=== PATIENT | female | born 2000 | race Caucasian/White ===

== ENCOUNTER 2020-03-19 03:52 | Emergency (ER) | payer BC ==
[~2020-03-19] VITALS: Ht 162 cm; Wt 104.3 kg
--- OUTSIDE RECORDS SUMMARY | 2020-03-19 04:03 | XMS REPORT | Continuity of Care Document ---
Author Organization Unknown Address Unknown Phone Unavailable Allergies There is no data. Medications There is no data. Problems There is no data. Procedures There is no data. Results There is no data. Encounters ACCT No. Visit Date/Time Discharge Status Pt. Type Provider Facility Loc./Unit Complaint [id number] 03/19/2020 03:59:[address] Emergency CELESTE GUZMAN DO Via [facility] ER CRAMPING,DIARRHEA
[2020-03-19] MEDS ORDERED: LACTATED RINGERS 1,000 ML IV ONE (04:17)
--- NOTE | 2020-03-19 04:24 | ED GI ---
General Chief Complaint: OB < 20 WEEKS Stated Complaint: CRAMPING,DIARRHEA Nursing Triage Note: Pt to with c/o abd cramping and diarrhea this morningn. Pt states she is 15 wks and wants to make sure everything is okay. 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 Sepsis Screen: No Definite Risk Source of Information: Patient History of Present Illness Date Seen by Provider: Mar 19, 2020 Time Seen by Provider: 04:09 Initial Comments PT ARRIVES VIA POV FROM [place] STATES SHE BEGAN HAVING DIARRHEA AND DIFFUSE UPPER ABDOMINAL CRAMPING AROUND NOON WAS ALOT BETTER FOR THE REST OF THE DAY, THEN STARTED UP AGAIN AROUND 2230 TONIGHT--NO CRAMPING NOW. HAS HAD WATERY DIARRHEA > 5 < 10. NO BLACK/BLOODY/TARRY STOOLS PT IS 15 WEEKS AND HAS HAD SOME ONGOING NAUSEA, BUT NO VOMITING AND NAUSEA IS NOT ANY WORSE THAN USUAL. LMP 12/06/19. AB 0 NO VAGINAL BLEEDING HAS OB APPOINTMENT WITH DR. SMITH TOMORROW 03/20/20. LAST APPOINTMENT 02/22/20 NO PROBLEMS WITH THIS . NO FEVER NO COUGH OR URI SYMPTOMS NO SORE THROAT NO CHANGES IN TASTE OR SMELL NO CHEST PAIN NO URINARY SYMPTOMS OR DECREASED OUTPUT NO DIZZINESS STATES SHE IS WORRIED SHE MIGHT BE DEHYDRATED, BUT HAS BEEN EATING AND DRINKING AND VOIDING NORMALLY PT LIVES AT HOME WITH . HE IS NOT ILL. BOTH HAVE EATEN THE SAME THINGS THE LAST FEW DAYS NO KNOWN SICK CONTACTS AT WORK. PT WORKS AT [employer] IN [place]. Allergies and Home Medications Allergies Coded Allergies: No Known Drug Allergies (Unverified , 03/19/20) Home Medications L. Acidophilus/Pectin, [place] 1 Each Capsule, 2 EACH PO QID Prescribed by: CELESTE GUZMAN on 03/19/2044 Ondansetron 4 Mg Tab.rapdis, 4 MG PO Q4H Prescribed by: CELESTE GUZMAN on 03/19/20 0544 Patient Home Medication List Home Medication List Reviewed: Yes Review of Systems Review of Systems Constitutional: no symptoms reported; No chills, No diaphoresis, No dizziness, No fever, No malaise, No weakness EENTM: No Symptoms Reported Respiratory: No Symptoms Reported; Denies Cough, Denies Shortness of Air Cardiovascular: No Symptoms Reported; Denies Chest Pain, Denies Edema, Denies Lightheadedness, Denies Palpitations, Denies Syncope Gastrointestinal: See HPI, Abdominal Pain (CRAMPING ALL ACROSS UPPER ABDOMEN--NO PAIN OR CRAMPING BELOW UMBILICUS) Genitourinary: No Symptoms Reported; Denies Burning, Denies Discharge, Denies Frequency, Denies Flank Pain Musculoskeletal: no symptoms reported; No back pain Skin: no symptoms reported Psychiatric/Neurological: No Symptoms Reported; Denies Headache Endocrine: No Symptoms Reported Hematologic/Lymphatic: No Symptoms Reported Past Klmjrig-Shggvd-Bnndsr Hx Past Med/Social Hx: Reviewed and Corrections made Patient Social History Alcohol Use: Rarely Uses Recreational Drug Use: No Smoking Status: Never a Smoker 2nd Hand Smoke Exposure: No Recent Foreign Travel: No Contact w/Someone Who Travel: No Recent Infectious Disease Expo: No Recent Hopitalizations: No Seasonal Allergies Seasonal Allergies: No Past Medical History Surgeries: No Respiratory: No Cardiac: No Neurological: No : Yes Last Menstrual Period: Dec 06, 2019 Hx : 1 Hx Para: 0 Hx Total # of Abortions (Sp): 0 Reproductive Disorders: No Genitourinary: No Gastrointestinal: No Musculoskeletal: No Endocrine: No HEENT: No Cancer: No Psychosocial: No Integumentary: No Blood Disorders: No Physical Exam Vital Signs Vital Signs - First Documented 03/19/20 04:12 Temp 36.8 Pulse 96 Resp 17 B/P (MAP) 125/75 (92) Pulse Ox 99 O2 Delivery Room Air Capillary Refill : Less Than 3 Seconds Height/Weight/BMI Height: '" Weight: lbs. oz. kg; 39.00 BMI Method: General Appearance: WD/WN, no apparent distress, other (DOES NOT APPEAR ILL OR TO BE IN ANY DISCOMFORT OR DISTRESS. WALKS UPRIGHT AND MOVES WITHOUT DIFFICULTY. ) HEENT: PERRL/EOMI, normal ENT inspection, TMs normal, pharynx normal Neck: non-tender, full range of motion, supple, normal inspection Respiratory: normal breath sounds, no respiratory distress, no accessory muscle use Cardiovascular: normal peripheral pulses, regular rate, rhythm, no edema, no JVD, no murmur Gastrointestinal: normal bowel sounds, non tender, soft, other (UTERUS 3 FB'S BELOW UMBILICUS) Extremities: normal inspection, no pedal edema, no calf tenderness, normal capillary refill Back: normal inspection, no CVA tenderness Neurologic/Psychiatric: external grinder tender II-XII nml as tested, no motor/sensory deficits, alert, normal mood/affect, oriented x 3 Skin: normal color, warm/dry Progress/Results/Core Measures Results/Orders Lab Results Laboratory Tests Test 03/19/20 04:47 03/19/20 04:57 Range/Units Urine Color YELLOW Urine Clarity SL CLOUDY Urine pH 6.0 5-9 Urine Specific [place] 1.010 L 1.016-1.022 Urine Protein NEGATIVE NEGATIVE Urine Glucose (UA) NEGATIVE NEGATIVE Urine Ketones NEGATIVE NEGATIVE Urine Nitrite NEGATIVE NEGATIVE Urine Bilirubin NEGATIVE NEGATIVE Urine Urobilinogen 0.2 < = 1.0 MG/DL Urine Leukocyte Esterase NEGATIVE NEGATIVE Urine RBC (Auto) NEGATIVE NEGATIVE Urine RBC NONE /HPF Urine WBC 0-2 /HPF Urine Squamous Epithelial Cells 0-2 /HPF Urine Crystals NONE /LPF Urine Bacteria TRACE /HPF Urine Casts NONE /LPF Urine Mucus NEGATIVE /LPF Urine Culture Indicated NO White Blood Count 13.1 H 4.3-11.0 10^3/uL Red Blood Count 4.35 4.35-5.85 10^6/uL Hemoglobin 13.0 11.5-16.0 G/DL Hematocrit 37 35-52 % Mean Corpuscular Volume 86 80-99 FL Mean Corpuscular Hemoglobin 30 25-34 PG Mean Corpuscular Hemoglobin Concent 35 32-36 G/DL Red Cell Distribution Width 14.1 10.0-14.5 % Platelet Count 230 130-400 10^3/uL Mean Platelet Volume 10.4 7.4-10.4 FL Neutrophils (%) (Auto) 89 H 42-75 % Lymphocytes (%) (Auto) 5 L 12-44 % Monocytes (%) (Auto) 5 0-12 % Eosinophils (%) (Auto) 0 0-10 % Basophils (%) (Auto) 0 0-10 % Neutrophils # (Auto) 11.7 H 1.8-7.8 X 10^3 Lymphocytes # (Auto) 0.7 L 1.0-4.0 X 10^3 Monocytes # (Auto) 0.7 0.0-1.0 X 10^3 Eosinophils # (Auto) 0.0 0.0-0.3 10^3/uL Basophils # (Auto) 0.0 0.0-0.1 10^3/uL Neutrophils % (Manual) 87 % Lymphocytes % (Manual) 6 % Monocytes % (Manual) 4 % Eosinophils % (Manual) 2 % Myelocytes % 1 % Poikilocytosis SLIGHT Basophilic Stippling SLIGHT Anisocytosis SLIGHT Sodium Level 136 135-145 MMOL/L Potassium Level 3.5 L 3.6-5.0 MMOL/L Chloride Level 109 H 98-107 MMOL/L Carbon Dioxide Level 16 L 21-32 MMOL/L Anion Gap 11 5-14 MMOL/L Blood Urea Nitrogen 8 7-18 MG/DL Creatinine 0.72 0.60-1.30 MG/DL Estimat Glomerular Filtration Rate > 60 BUN/Creatinine Ratio 11 Glucose Level 108 H 70-105 MG/DL Calcium Level 8.9 8.5-10.1 MG/DL Corrected Calcium 8.8 8.5-10.1 MG/DL Magnesium Level 1.6 1.6-2.4 MG/DL Total Bilirubin 0.3 0.1-1.0 MG/DL Aspartate Amino Transf (AST/SGOT) 15 5-34 U/L Alanine Aminotransferase (ALT/SGPT) 18 0-55 U/L Alkaline Phosphatase 63 40-136 U/L Total Protein 7.0 6.4-8.2 GM/DL Albumin 4.1 3.2-4.5 GM/DL Amylase Level 67 25-125 U/L Lipase 23 8-78 U/L My Orders Orders - CELESTE GUZMAN DO Ed Iv/Invasive Line Start (03/19/20 04:17) Heart Tones (03/19/20 04:17) Monitor-Rhythm Ecg Trace Only (03/19/20 04:17) Amylase (03/19/20 04:17) Cbc With Automated Diff (03/19/20 04:17) Comprehensive Metabolic Panel (03/19/20 04:17) Lipase (03/19/20 04:17) Magnesium (03/19/20 04:17) Ua Culture If Indicated (03/19/20 04:17) Ed Iv/Invasive Line Start (03/19/20 04:17) Lactated Ringers (Lr 1000 Ml Iv Solution (03/19/20 04:17) Manual Differential (03/19/20 04:57) Ondansetron Oral Dissolve Tab (Zofran (03/19/20 05:21) Vital Signs/I&O 03/19/20 04:12 Temp 36.8 Pulse 96 Resp 17 B/P (MAP) 125/75 (92) Pulse Ox 99 O2 Delivery Room Air Blood Pressure Mean: 92 Progress Progress Note : Progress Note FHT'S 150'S UNABLE TO OBTAIN IV ACCESS, BUT ABLE TO DRAW LAB PT GIVEN ZOFRAN FOR NAUSEA, WITH IMPROVEMENT--PT DRINKING WATER WITHOUT DIFFICULTY HAD ONE EPISODE OF DIARRHEA DURING ER STAY, BUT WAS NOT ABLE TO COLLECT SPECIMEN TO SEND TO LAB Departure Impression Primary Impression: 15 weeks gestation of Additional Impression: Gastroenteritis Disposition: 01 HOME, SELF-CARE Condition: Improved Departure-Patient Inst. Referrals: YAMILET ANDREW MD (PCP) Primary Care Physician TODD SMITH DO (Family) Primary Care Physician Patient Instructions: [id number] Add. Discharge Instructions: CLEAR LIQUIDS--WATER, BROTH, JELLO, GATORADE BRATS DIET--BANANAS, RICE, APPLESAUCE, TOAST, SALTINES KEEP YOUR APPOINTMENT WITH DR. SMITH TOMORROW RETURN TO ER IF SYMPTOMS WORSEN All discharge instructions reviewed with patient and/or family. Voiced understanding. Scripts L. Acidophilus/Pectin, [place] (Acidophilus Capsule) 1 Each Capsule 2 EACH PO QID, #40 CAP Prov: CELESTE GUZMAN DO 03/19/20 Ondansetron (Ondansetron Odt) 4 Mg Tab.rapdis 4 MG PO Q4H for Nausea/Vomiting, #10 TAB Prov: CELESTE GUZMAN DO 03/19/20 CELESTE GUZMAN DO Mar 19, 2020 04:24
[2020-03-19 04:57] LABS: BILIRUBIN,URINE NEGATIVE (NEGATIVE); CLARITY,URINE SL CLOUDY; COLOR,URINE YELLOW; GLUCOSE, URINE (UA) NEGATIVE (NEGATIVE); KETONES,URINE NEGATIVE (NEGATIVE); LEUKOCYTE ESTERASE ,URINE NEGATIVE (NEGATIVE); NITRITE,URINE NEGATIVE (NEGATIVE); PROTEIN,URINE NEGATIVE (NEGATIVE)
[2020-03-19 05:06] LABS: BACTERIA,URINE TRACE /HPF; SQUAMOUS EPITHELIAL CELL,UR 0-2 /HPF; WBC,URINE 0-2 /HPF
[2020-03-19 05:09] LABS: BASOPHILS % (AUTO) 0 % (0-10); EOSINOPHILS % (AUTO) 0 % (0-10); HEMATOCRIT 37 % (35-52); LYMPHOCYTES # (AUTO) 0.7 X 10^3 (1.0-4.0); LYMPHOCYTES % (AUTO) 5 % (12-44); MEAN CORPUSCULAR HEMOGLOBIN 30 PG (25-34); MEAN CORPUSCULAR HGB CONC 35 G/DL (32-36); MEAN CORPUSCULAR VOLUME 86 FL (80-99); MEAN PLATELET VOLUME 10.4 FL (7.4-10.4); MONOCYTES # (AUTO) 0.7 X 10^3 (0.0-1.0); MONOCYTES % (AUTO) 5 % (0-12); NEUTROPHILS # (AUTO) 11.7 X 10^3 (1.8-7.8); NEUTROPHILS % (AUTO) 89 % (42-75); PLATELET COUNT 230 10^3/uL (130-400); RED CELL DISTRIBUTION WIDTH 14.1 % (10.0-14.5); WHITE BLOOD COUNT 13.1 10^3/uL (4.3-11.0)
[2020-03-19] MEDS ORDERED: ONDANSETRON 4 MG (ZOFRAN) ORAL DISSOLVE TAB PO STA (05:21)
[2020-03-19 05:34] LABS: ALANINE AMINOTRANSFERASE 18 U/L (0-55); ALBUMIN 4.1 GM/DL (3.2-4.5); ALKALINE PHOSPHATASE 63 U/L (40-136); AMYLASE 67 U/L (25-125); BILIRUBIN,TOTAL 0.3 MG/DL (0.1-1.0); BUN/CREATININE RATIO 11; CALCIUM 8.9 MG/DL (8.5-10.1); CARBON DIOXIDE 16 MMOL/L (21-32); CHLORIDE 109 MMOL/L (98-107); CREATININE SERUM 0.72 MG/DL (0.60-1.30); GFR ESTIMATED > 60; GLUCOSE 108 MG/DL (70-105); LIPASE 23 U/L (8-78); MAGNESIUM 1.6 MG/DL (1.6-2.4); POTASSIUM 3.5 MMOL/L (3.6-5.0); SODIUM 136 MMOL/L (135-145)
[2020-03-19 05:36] LABS: ANISOCYTOSIS SLIGHT; EOSINOPHILS % (MANUAL) 2 %; LYMPHOCYTES % (MANUAL) 6 %; MONOCYTES % (MANUAL) 4 %; MYELOCYTES % 1 %; NEUTROPHILS % (MANUAL) 87 %; POIKILOCYTOSIS SLIGHT
[2020-03-19] MEDS ORDERED: ONDA4TAB11 PO (05:44)
[2020-03-19] MEDS ORDERED: L. A1CAP11 PO (05:44)
[2020-03-19 05:51] VITALS: BP 122/81
== END 2020-03-19 05:51 | disposition home or self-care (01) ==
LOC: EDUNIT# 03:52 → ER 03:59 → EDSEX 03:59 → ER 05:51
DX: O99.612 Diseases of the digestive system complicating pregnancy, second trimester (principal); K52.9 Noninfective gastroenteritis and colitis, unspecified; Z3A.15 15 weeks gestation of pregnancy
CPT/HCPCS: 36415; 80053; 81000; 82150; 83690; 83735; 85007; 85027; 93041

== ENCOUNTER → 2020-04-23 | Outpatient (CLI) | payer BC ==
[~2020-04-23] MED LIST: L. A1CAP11 PO; ONDA4TAB11 PO
--- NOTE | 2020-04-23 13:02 | Diagnostic Imaging Report ---
INDICATION: survey. TECHNIQUE: Multiple real-time grayscale images were obtained over the gravid uterus. COMPARISON: None. FINDINGS: There is a single live fetus in a cephalic presentation. heart rate was recorded at 153 BPM. Placenta is posterior. Amniotic fluid index is 14.1 cm. survey demonstrates kidneys, bladder, and stomach to be unremarkable. brain is unremarkable. There is a four-chamber heart. There is a three-vessel cord with normal insertion. spine is unremarkable. Biometrical measurements are as follows: Biparietal 4.91 cm, age 20 weeks 6 days. Head circumference 17.78 cm, age 20 weeks 2 days. Abdominal circumference 14.42 cm, age 19 weeks 6 days. Femur length 3.15 cm, age 19 weeks 6 days. Sonographic estimate age: 20 weeks 2 days. Sonographic estimated date of delivery: 09/08/2020. Estimated Weight: 317 gm (+/- 46 gm). LMP percentile: 45%. heart rate: 153 beats per minute. number: 1 of 1. IMPRESSION: Single live IUP of 20 weeks 2 days gestational age. Estimated date of confinement sonographically is 09/08/2020. No complicating features are detected. Dictated by: Dictated on workstation # [id number]
== END ==
LOC: RAD 10:00
PROVIDERS: ATTEND Obstetrics & Gynecology
DX: Z36.89 Encounter for other specified antenatal screening (principal); Z3A.20 20 weeks gestation of pregnancy
CPT/HCPCS: 76805

== ENCOUNTER 2020-09-10 15:53 | Outpatient (CLI) | payer BC, MEDICAID ==
[~2020-09-10] VITALS: Ht 160 cm; Wt 125.1 kg
[2020-09-10 16:00] VITALS: BP 137/71
--- NOTE | 2020-09-10 16:00 | NUR ---
RASHI ALEGRE presented to unit from Home, accompanied by Significant Other, with c/o FELL AT WORK. RASHI ALEGRE weighed, gowned, voided, and to bed. EFHM and TOCO applied, VS taken. RASHI ALEGRE oriented to bed controls, call light, TV, heat, and A/C controls.
[2020-09-10 16:10] VITALS: BP 137/71
--- NOTE | 2020-09-10 16:55 | NUR ---
Dr. Giles notified of patient's arrival, complaints, and status. New orders received.
[2020-09-10] MEDS ORDERED: PNV11TAB5 PO (18:09)
[2020-09-10 18:15] VITALS: BP 126/76
--- NOTE | 2020-09-10 19:42 | NUR ---
pt resting in bed, denies any pain. s/o at bedside. called to unit. Update given. No new orders at this time. Will continue to monitor.
--- NOTE | 2020-09-10 20:25 | NUR ---
Discharge instructions verbalized with pt. labor precautions given. Pt will follow up in the clinic tomorrow. Pt verbalized understanding. Pt dc'd home with s/o at side.
--- NOTE | 2020-09-11 08:09 | Physician Query-Final Dx ---
Clinic Account Progress/Dx Physician Query: Please give diagnosis Please include # weeks gestation Date of Service Sep 10, 2020 at 15:53 ULISES MONTEZ Sep 11, 2020 08:09
[2020-09-13] MEDS ORDERED: ACHD5005 PO (07:58)
[2020-09-13] MEDS ORDERED: DCS100C PO (07:58)
[2020-09-13] MEDS ORDERED: IBUP-844 PO (07:58)
== END 2020-09-10 20:25 ==
LOC: WSo 15:53 → LDRP 16:05 → WSo 20:25
PROVIDERS: ATTEND Obstetrics & Gynecology
DX: O9A.213 Injury, poisoning and certain other consequences of external causes complicating pregnancy, third trimester (principal); Z3A.39 39 weeks gestation of pregnancy
CPT/HCPCS: 99213

== ENCOUNTER 2020-09-12 02:59 | Inpatient (IN) | payer BC, MEDICAID ==
[2020-09-12] VITALS (74 sets, daily range): BP systolic 77–186; BP diastolic 36–99
[~2020-09-12] VITALS: Ht 160.2 cm; Wt 123.4 kg
[~2020-09-12 02:59] MED LIST changes: +PNV11TAB5 PO
--- NOTE | 2020-09-12 03:00 | NUR ---
RASHI ALEGRE presented to unit via W/C from home/ED, accompanied by avionics electronics technician & SO, with c/o CONTRACTIONS. RASHI ALEGRE weighed, gowned, voided, and to bed. EFHM and TOCO applied, VS taken. RASHI ALEGRE oriented to bed controls, call light, TV, heat, and A/C controls.
[2020-09-12] MEDS ORDERED: D5 LR IV SOLUTION 1,000 ML IV ONE (04:06)
[2020-09-12] MEDS ORDERED: LACTATED RINGERS 1,000 ML IV ONE ×2 (04:30→06:00)
[2020-09-12] MEDS ORDERED: fentaNYL 2 mcg/ml BUPIVA 0.125 100 ML ONE (04:32)
[2020-09-12] MEDS: D5 LR IV SOLUTION 1,000 ML IV SCH ×2 (04:38→12:16)
[2020-09-12 04:44] LABS: BASOPHILS # (AUTO) 0.1 10^3/uL (0.0-0.1); BASOPHILS % (AUTO) 0 % (0-10); EOSINOPHILS % (AUTO) 0 % (0-10); HEMATOCRIT 36 % (35-52); HEMOGLOBIN 11.9 g/dL (11.5-16.0); LYMPHOCYTES # (AUTO) 1.9 10^3/uL (1.0-4.0); LYMPHOCYTES % (AUTO) 12 % (12-44); MEAN CORPUSCULAR HEMOGLOBIN 28 pg (25-34); MEAN CORPUSCULAR HGB CONC 33 g/dL (32-36); MEAN CORPUSCULAR VOLUME 85 fL (80-99); MEAN PLATELET VOLUME 10.5 fL (9.0-12.2); MONOCYTES # (AUTO) 0.7 10^3/uL (0.0-1.0); MONOCYTES % (AUTO) 5 % (0-12); NEUTROPHILS # (AUTO) 12.8 10^3/uL (1.8-7.8); NEUTROPHILS % (AUTO) 80 % (42-75); PLATELET COUNT 267 10^3/uL (130-400); WHITE BLOOD COUNT 15.9 10^3/uL (4.3-11.0)
[2020-09-12] MEDS ORDERED: fentaNYL INJECTION 100 MCG/2 ML AMP ONE ×2 (05:20→16:14)
[2020-09-12] MEDS ORDERED: BUPIVACAINE 0.25% 30 ML (SENSORCAINE) VIAL ONE ×2 (05:20→17:37)
[2020-09-12] MEDS ORDERED: NALOXONE 0.4 MG/ML 1 ML (NARCAN) VIAL IV PRN (06:00)
[2020-09-12] MEDS ORDERED: CATHETER FLUSH 10 ML SYR IV PRN (06:00)
[2020-09-12] MEDS ORDERED: CATHETER FLUSH 10 ML SYR IV SCH ×2 (06:00→22:00)
[2020-09-12] MEDS: fentaNYL 2 mcg/ml BUPIVA 0.125 100 ML IV SCH ×2 (06:13→14:25)
--- NOTE | 2020-09-12 07:22 | History & Physical-OB ---
OB - Chief Complaint & HPI Date/Time Date of Admission: Date of Admission: Sep 12, 2020 at 04:06 Date seen by a Provider: Sep 12, 2020 Time Seen by a Provider: 07:10 Chief Complaint/History OB-Reason for Admission/Chief: Onset of Labor Hx : 1 Hx Para: 0 Expected Date of Delivery: Sep 11, 2020 Gestational Age in Weeks: 40 Gestational Age in Days: 1 Admission Nurse Assessment Rev: Yes History of Labs O pos Antibody neg RI RPR NR HBsAg NR HIV NR GC neg GBS neg Allergies and Home Medications Allergies Coded Allergies: No Known Drug Allergies (Unverified , 03/19/20) Home Medications [id number]/FA/Omega3/Dha/Fish Oil 1 Each Tab.chew, 1 EACH PO DAILY, (Reported) Patient Home Medication List Home Medication List Reviewed: Yes OB - History Hx of Present Care: Yes Ultrasounds: Normal mid trimester US Obstetrical Complications: None Medical Complications: None Patient Past Medical History n/a Social History/Family History 2nd Hand Smoke Exposure: No Immunizations Date of Influenza Vaccine: Jun 12, 2020 OB - Admission Exam Physical Exam Vitals: Vital Signs 09/12/20 09/12/20 06:30 06:40 Temp 36.4 Pulse 81 Resp 18 B/P (MAP) 116/59 (78) Pulse Ox 94 O2 Delivery Room Air HEENT: NCAT Heart: Rhythm Normal Lungs: Clear Abdomen: Gravid Extremities: Normal Reflexes: Normal Cervical Dilatation: 3cm Effacement: 75% Station: -1 Membranes: Intact Heart Rate: 130's Accelerations: Accelerations Present Decelerations: No Decelerations Short Term Variability: Present Hotel Or Motel Receptionist Variability: Average (6-25) Contractions on Admission: < 5 Minutes Apart Intensity: Firm Labs Laboratory Tests Test 09/12/20 04:15 Range/Units White Blood Count 15.9 H 4.3-11.0 10^3/uL Red Blood Count 4.20 3.80-5.11 10^6/uL Hemoglobin 11.9 11.5-16.0 g/dL Hematocrit 36 35-52 % Mean Corpuscular Volume 85 80-99 fL Mean Corpuscular Hemoglobin 28 25-34 pg Mean Corpuscular Hemoglobin Concent 33 32-36 g/dL Red Cell Distribution Width 14.1 10.0-14.5 % Platelet Count 267 130-400 10^3/uL Mean Platelet Volume 10.5 9.0-12.2 fL Immature Granulocyte % (Auto) 3 % Neutrophils (%) (Auto) 80 H 42-75 % Lymphocytes (%) (Auto) 12 12-44 % Monocytes (%) (Auto) 5 0-12 % Eosinophils (%) (Auto) 0 0-10 % Basophils (%) (Auto) 0 0-10 % Neutrophils # (Auto) 12.8 H 1.8-7.8 10^3/uL Lymphocytes # (Auto) 1.9 1.0-4.0 10^3/uL Monocytes # (Auto) 0.7 0.0-1.0 10^3/uL Eosinophils # (Auto) 0.0 0.0-0.3 10^3/uL Basophils # (Auto) 0.1 0.0-0.1 10^3/uL Immature Granulocyte # (Auto) 0.4 H 0.0-0.1 10^3/uL OB - Assessment/Plan/Diagnosis Assessment Assessment: active labor Admission Dx 20 yo @ 40.1 Active labor Post dates GBS neg Admission Status: Inpatient Order (span 2 midnights) Reason for Inpatient Admission: Active labor at term Plan Plan: Expectant Management TODD SMITH DO Sep 12, 2020 07:22
[2020-09-12] MEDS ORDERED: OXYTOCIN PRE-MIX DRIP 500 ML IV SCH ×2 (07:30→16:45)
[2020-09-12] MEDS ORDERED: LIDOCAINE/EPI 2% 1:200,00 (XYLOCAINE) 10 ML VIAL ONE ×2 (15:30→15:31)
[2020-09-12] MEDS ORDERED: CITRIC ACID/SOB CIT (BICITRA) 30 ML UDC ONE (16:00)
[2020-09-12] MEDS ORDERED: METOCLOPRAMIDE INJ 10 MG/2 ML (REGLAN) ONE (16:00)
[2020-09-12] MEDS ORDERED: ceFAZolin 2 GM IV Premixed 50 ML ONE (16:00)
[2020-09-12] MEDS ORDERED: FAMOTIDINE 20MG/2ML IV (PEPCID) ONE (16:00)
[2020-09-12] MEDS ORDERED: CITRIC ACID/SOB CIT (BICITRA) 30 ML UDC PO ONE (16:15)
[2020-09-12] MEDS ORDERED: LACTATED RINGERS 1,000 ML IV PRN (16:15)
[2020-09-12] MEDS ORDERED: FAMOTIDINE 20MG/2ML IV (PEPCID) IV ONE (16:15)
[2020-09-12] MEDS ORDERED: METOCLOPRAMIDE INJ 10 MG/2 ML (REGLAN) IV ONE (16:15)
--- NOTE | 2020-09-12 16:44 | Progress Note ---
Standard Progress Note Progress Notes/Assess & Plan Date Seen by a Provider: Sep 12, 2020 Time Seen by a Provider: 16:00 Progress/Assessment & Plan Patient admitted in active labor, she progressed with AROM and Pitocin augmentation to complete and 0 station after receiving an epidural. She pushed with prolonged bradycardia noted, O2 supplementation via non-rebreather mask with no resolution. Suspected OP presentation on SVE. Large caput noted. Due to CPD, and intolerance of second stage labor, discussed with patient proceeding with PLTCS. Risk reviewed, all questions answered and consent obtained. TODD SMITH DO Sep 12, 2020 16:44
[2020-09-12] MEDS ORDERED: MEASLES,MUMPS,RUBELLA 1 EA INJ SC SCH (16:45)
[2020-09-12] MEDS ORDERED: TETANUS,DIPTH,PERTUSS P/F (BOOSTRIX) 0.5 ML VIAL IM SCH (16:45)
[2020-09-12] MEDS ORDERED: ONDANSETRON 4 MG/2 ML (SDV) Z0FRAN IVP PRN (16:45)
[2020-09-12] MEDS ORDERED: ONDANSETRON 4 MG/2 ML (SDV) Z0FRAN ONE (17:07)
[2020-09-12] MEDS ORDERED: KETOROLAC 30 MG/ML VIAL ONE (17:07)
--- NOTE | 2020-09-12 18:35 | NUR ---
Pt to room 306 via bed accompanied by ETHYLENE PLANT HELPER, S.O. and Infant. Report rec'd from Harriet Cardenas RN. SCDs on and activated. IV fluids to pump. VS taken. Pt and S.O. oriented to room and call light. Pt video chatting with family. Denies questions or concerns at this tme.
[2020-09-12] MEDS: DOCUSATE SODIUM 100 MG (COLACE) CAP PO SCH (19:53)
[2020-09-12] MEDS: KETOROLAC 30 MG/ML VIAL IV SCH (19:54)
--- NOTE | 2020-09-12 20:00 | NUR ---
Rn to room, plan of care reviewed with pt, Offered oral pain medication pt declined. VSS, shift assessment done. FF u/1 light locgina kearney noted, vpad changed, pericare given and clean pad, and mesh panties applied, clean down one. SCD's turned on. IS at bedside. Fresh ice water given. Info papers explained. Will cont to monitor.
--- NOTE | 2020-09-12 20:23 | OPERATIVE REPORT ---
DATE OF SERVICE: PREOPERATIVE DIAGNOSES: 1. A 20-year-old G1, P0 at 40 weeks and 1 day gestation. 2. Cephalopelvic disproportion and intolerance to second stage labor. POSTOPERATIVE DIAGNOSES: 1. A 20-year-old G1, P0 at 40 weeks and 1 day gestation. 2. Cephalopelvic disproportion and intolerance to second stage labor. 3. Persistent occiput posterior and nuchal cord x1. PROCEDURE: Primary low transverse section. SURGEON: Kenney Goldberg DO ANESTHESIA: Spinal. ESTIMATED BLOOD LOSS: 400 mL. URINE OUTPUT: 100 mL clear at the end of the procedure. FLUIDS: 1600 mL lactated Ringer's solution. FINDINGS: A live male weighing 8 pounds 8 ounces, Apgars of 8 and 9. Grossly normal appearing uterus, bilateral fallopian tubes and ovaries. SPECIMEN SENT: None. INDICATIONS FOR PROCEDURE: This 20-year-old female is the patient who was brought in for induction of labor due to postdates. However, she presented in active labor; therefore, little to no augmentation was done at the time of admission. However, her labor pattern after receiving an epidural and she was 4 cm, I therefore at that point augmented her labor with artificial rupture of membranes and Pitocin augmentation at which point she continued to proceed to complete dilation and 0 station; however, with extensive pushing without any progression in the vertex as well as persistent bradycardia and prolonged heart rate decelerations, I discussed with the patient to proceed with section due to my concerns of infant being unable to be delivered vaginally. Risks of the procedure were discussed with the patient in detail and after all of her questions were answered, consent was obtained, the patient was taken to the operating room. OPERATIVE REPORT IN DETAIL: Once in the operating room, spinal analgesia was found to be adequate. She was placed in the supine position with leftward tilt, prepped and draped in normal sterile fashion, at which point timeout was performed. Anesthesia was tested. I then proceeded to make a Pfannenstiel skin incision with a knife and carried down to underlying fascia using Bovie cautery. The fascial incision extended laterally using Bovie cautery. The superior aspect of fascial incision was then grasped with Odalys clamps, tented up and dissected off the underlying rectus muscles. The inferior aspect of the fascial incision was then grasped with Odalys clamps, tented up and dissected off the underlying rectus muscles. Rectus muscles were then dissected down the midline, which exposed the peritoneum, which I entered bluntly and extended using blunt traction. Tom ring retractor was placed in the peritoneal incision, which offers excellent lateral sidewall retraction. I identified the lower uterine segment, which was found to be thinned out and make a low transverse incision through the vesicouterine peritoneum and bluntly dissected off the lower uterine segment. I then proceeded with myotomy until membranes were visualized, at which point I extended the uterine incision laterally and superiorly. The infant was found in the occiput posterior presentation vertex. The 's head was elevated up the incision where it was delivered through the incision. The nares and oropharynx were bulb suctioned. Nuchal cord was reduced x1. Anterior and posterior shoulders were delivered. The was then brought to the operative field with cord was doubly clamped and cut and infant was handed off to waiting nurses in attendance. Cord blood was collected, 3-vessel cord with intact placenta was delivered spontaneously thereafter. IV Pitocin was initiated to facilitate uterine contraction. Uterine fundus confirmed with bimanual massage. The uterus was then exteriorized and cleared of all endometrial clots and debris. I then proceeded with closing the uterine incision using 0 Vicryl suture in running locked fashion. Second layer of imbricating 0 Monocryl was placed. Excellent hemostasis was noted after doing this. I then placed the uterus back in the pelvis and copiously irrigated the pelvis using normal saline. Once again, there was no active bleeding noted from any of my dissection planes. I placed Interceed antiadhesive over my low transverse incision. I removed the Tom ring retractor and proceeded with closing the peritoneum using 3-0 Vicryl suture in a running fashion. The rectus muscles were reapproximated using 3-0 Vicryl suture in interrupted fashion. The fascia was reapproximated using 0 Vicryl suture in running fashion. Subcutaneous tissue was reapproximated using 3-0 plain interrupted subcutaneous stitch and skin reapproximated using 4-0 Monocryl running subcuticular. Dermabond was applied to incision and sterile dressing with adhesive white tape. The patient tolerated the procedure well and was taken to recovery area in stable condition. Lap and sponge counts were correct at the end of the procedure. Instrument counts correct as well. Two grams of Ancef given preoperatively for infection prophylaxis. Job ID: [id number] DocumentID: [id number] Dictated Date: 09/12/2020 19:28:32 Pet Handler Date: 09/12/2020 20:23:09 Dictated By: DO MOLLY SERRANO
--- NOTE | 2020-09-12 21:00 | NUR ---
Pt up to void without difficulty, no void noted, pericare discussed and demonstrated. pt back to bed, calf scd's on rosalio.
[2020-09-12] MEDS: HYDROcodone/APAP 5 MG/325 MG (LORTAB) TAB PO PRN (22:06)
--- NOTE | 2020-09-12 22:06 | NUR ---
Ice pack placed on lower abdomen for pain.
[2020-09-13] VITALS: BP 110/56
--- NOTE | 2020-09-13 | NUR ---
Stand by assist only while pt gets up to void, positive void noted, pericare done, clean vpad in place. Pt back to bed with MICAH calf scd's in place. Ice pack to lower abdomen.
[2020-09-13] MEDS: KETOROLAC 30 MG/ML VIAL IV SCH (02:59)
[2020-09-13 03:27] VITALS: BP 117/53
[2020-09-13 06:47] LABS: BASOPHILS # (AUTO) 0.1 10^3/uL (0.0-0.1); BASOPHILS % (AUTO) 0 % (0-10); EOSINOPHILS # (AUTO) 0.1 10^3/uL (0.0-0.3); EOSINOPHILS % (AUTO) 0 % (0-10); HEMATOCRIT 33 % (35-52); HEMOGLOBIN 10.9 g/dL (11.5-16.0); LYMPHOCYTES # (AUTO) 2.3 10^3/uL (1.0-4.0); LYMPHOCYTES % (AUTO) 10 % (12-44); MEAN CORPUSCULAR HEMOGLOBIN 29 pg (25-34); MEAN CORPUSCULAR HGB CONC 33 g/dL (32-36); MEAN CORPUSCULAR VOLUME 87 fL (80-99); MEAN PLATELET VOLUME 10.3 fL (9.0-12.2); MONOCYTES # (AUTO) 1.6 10^3/uL (0.0-1.0); MONOCYTES % (AUTO) 7 % (0-12); NEUTROPHILS # (AUTO) 18.2 10^3/uL (1.8-7.8); NEUTROPHILS % (AUTO) 81 % (42-75); PLATELET COUNT 246 10^3/uL (130-400); WHITE BLOOD COUNT 22.6 10^3/uL (4.3-11.0)
--- NOTE | 2020-09-13 07:57 | Postpartum Progress Note ---
Note Note Day # 1 Subjective: Patient is without complaints. Ambulating, voiding. Tolerating a regular diet without nausea or vomiting. Normal lochia. Pain is well controlled with oral pain medications. Objective: Physical Exam: General - Alert and oriented, no apparent distress Abdomen - Soft, appropriately tender to palpation, non-distended, fundus firm at umbilicus Extremities - no edema, negative Angelo's bilaterally Incision- c/d/i Assessment: POD 1 PLTCS Acute blood loss anemia Plan: Routine care. Encourage breast feeding. Encourage ambulation. Ferrous sulfate supplementation. Plan for discharge tomorrow Vitals - Labs Vital Signs - I&O Vital Signs Date Time Temp Pulse Resp B/P (MAP) Pulse Ox O2 Delivery O2 Flow Rate FiO2 09/13/20 03:27 36.2 83 18 117/53 (74) 97 Room Air 09/13/20 00:00 36.3 89 18 110/56 (74) 97 Room Air 09/12/20 20:00 36.2 97 18 145/64 (91) 97 Room Air 09/12/20 18:40 36.0 80 18 126/58 (80) 99 Room Air 09/12/20 18:30 Room Air 09/12/20 18:20 36.6 20 98/40 (59) 100 Room Air 09/12/20 18:15 Room Air 09/12/20 18:10 20 77/36 (50) 100 Room Air 09/12/20 18:00 16 98/54 (69) 98 Room Air 09/12/20 17:55 Room Air 09/12/20 17:50 18 77/45 (56) 99 Room Air 09/12/20 17:45 Room Air 09/12/20 17:40 19 85/40 (55) 98 Room Air 09/12/20 17:32 37.2 16 109/37 (61) 97 Room Air 09/12/20 17:32 Room Air 09/12/20 16:00 86 18 146/64 (91) Room Air 09/12/20 15:45 104 18 169/70 (103) Room Air 09/12/20 15:15 36.5 104 18 137/63 (87) Room Air 09/12/20 15:05 83 18 145/65 (91) Room Air 09/12/20 14:45 95 18 145/71 (95) Room Air 09/12/20 14:30 100 18 141/66 (91) Room Air 09/12/20 14:00 74 18 141/81 (101) Room Air 09/12/20 13:45 73 18 123/58 (79) Room Air 09/12/20 13:30 73 18 134/65 (88) Room Air 09/12/20 13:15 87 18 140/67 (91) Room Air 09/12/20 13:00 72 18 135/64 (87) Room Air 09/12/20 12:45 36.4 80 18 128/59 (82) Room Air 09/12/20 12:30 73 18 134/64 (87) Room Air 09/12/20 12:15 72 18 136/69 (91) Room Air 09/12/20 12:00 36.5 73 18 136/64 (88) Room Air 09/12/20 11:45 78 18 138/65 (89) Room Air 09/12/20 11:30 80 18 128/60 (82) Room Air 09/12/20 11:15 67 18 125/58 (80) Room Air 09/12/20 11:00 77 18 128/58 (81) Room Air 09/12/20 10:45 70 18 129/62 (84) Room Air 09/12/20 10:30 71 18 137/81 (99) Room Air 09/12/20 10:15 77 18 137/72 (93) Room Air 09/12/20 10:00 36.4 63 18 113/60 (77) Room Air 09/12/20 09:50 67 18 110/57 (74) Room Air 09/12/20 09:35 75 18 105/52 (69) Room Air 09/12/20 09:20 77 18 110/53 (72) Room Air 09/12/20 09:00 90 18 121/58 (79) Room Air 09/12/20 08:50 84 18 127/60 (82) Room Air 09/12/20 08:35 94 18 125/60 (81) Room Air 09/12/20 08:20 83 18 128/59 (82) Room Air 09/12/20 08:05 36.3 87 18 128/60 (82) Room Air I & O 09/13/20 06:59 Intake Total 4850 ml Output Total 1200 ml Balance 3650 ml Labs Laboratory Tests 09/13/20 06:37: White Blood Count 22.6H, Red Blood Count 3.79L, Hemoglobin 10.9L, Hematocrit 33L , Mean Corpuscular Volume 87, Mean Corpuscular Hemoglobin 29, Mean Corpuscular Hemoglobin Concent 33, Red Cell Distribution Width 14.5, Platelet Count 246, Mean Platelet Volume 10.3, Immature Granulocyte % (Auto) 2, Neutrophils (%) (Auto) 81H, Lymphocytes (%) (Auto) 10L, Monocytes (%) (Auto) 7, Eosinophils (%) (Auto) 0, Basophils (%) (Auto) 0, Neutrophils # (Auto) 18.2H, Lymphocytes # (Auto) 2.3, Monocytes # (Auto) 1.6H, Eosinophils # (Auto) 0.1, Basophils # (Auto) 0.1, Immature Granulocyte # (Auto) 0.4H TODD SMITH DO Sep 13, 2020 07:57
[2020-09-13] MEDS ORDERED: ACHD5005 PO (07:58)
[2020-09-13] MEDS ORDERED: IBUP-844 PO (07:58)
[2020-09-13] MEDS: HYDROcodone/APAP 5 MG/325 MG (LORTAB) TAB PO PRN (07:58)
[2020-09-13] MEDS ORDERED: DCS100C PO (07:58)
--- NOTE | 2020-09-13 08:00 | Discharge Inst-Women's Service ---
Discharge Inst-Women's Serv Depart Medication/Instructions New, Converted or Re-Newed RX: RX on Chart Final Diagnosis POD 2 PLTCS Problems Reviewed?: Yes Consults/Follow Up Additional Follow Up: Yes Orders/Referrals Dr. Goldberg in 7-10 days and in 6 weeks Activity Activity: Activity as Tolerated Driving Instructions: No Driving for 1 Week NO SMOKING: NO SMOKING Nothing Inside Vagina: No Douching, No [place], No Tampons Diet Discharge Diet: No Restrictions Symptoms to Report to : Bleeding Excessive, Pain Increased, Fever Over 101 Degrees F, Vaginal Bleeding Increase, Questions/Concerns For Any Problems or Questions: Contact Your Physician Skin/Wound Care Infection Signs and Symptoms: Increased Redness, Foul Odor of Wound, Increased Drainage, Skin Itchy or Has a Rash, Increased Swelling, Temperature Above 101 F Operative Area Clean and Dry: Keep Incision Clean/Dry Stitches/[place]/Dermabond: Dermabond, Care of Stitches Bathing Instructions: TODD Ordoñez DO Sep 13, 2020 08:00
--- NOTE | 2020-09-13 08:09 | Anesthesia-Regional Post-Op ---
Regional Patient Condition Mental Status: Alert, Oriented x3 Circulation: Same as Pre-Op Headache: Absent Sensation: Full Recovery Motor Block: Absent Post Op Complications Complications None Follow Up Care/Instructions Patient Instructions None needed. Anesthesia/Patient Condition Patient is doing well, no complaints, stable vital signs, no apparent adverse anesthesia problems. GOPAL THOMAS DO Sep 13, 2020 08:09
[2020-09-13 09:18] VITALS: BP 137/72
[2020-09-13] MEDS: DOCUSATE SODIUM 100 MG (COLACE) CAP PO SCH ×2 (09:22→21:07)
[2020-09-13] MEDS: IBUPROFEN 600 MG (MOTRIN) TAB PO SCH ×3 (09:23→21:07)
--- NOTE | 2020-09-13 10:45 | NUR ---
Pt showered at this time. Island dressing applied to incision.
[2020-09-13 13:15] VITALS: BP 129/59
[2020-09-13 15:23] VITALS: BP 129/58
--- NOTE | 2020-09-13 16:30 | NUR ---
Pt up ambulating in hallways. No s/s of distress noted.
[2020-09-13] MEDS ORDERED: IBUPROFEN 600 MG (MOTRIN) TAB PO SCH (16:45)
--- NOTE | 2020-09-13 20:00 | NUR ---
to pts room. just finished baby. no needs at this time. discussed POC with pt and s/o.
[2020-09-13 21:15] VITALS: BP 127/75
--- NOTE | 2020-09-14 01:05 | NUR ---
REPORT RECEIVED AND CARES RESUMED BY THIS NURSE.
[2020-09-14 02:55] VITALS: BP 123/58
--- NOTE | 2020-09-14 02:55 | NUR ---
VS OBTAINED AND STABLE. PT DENIES ANY PAIN. PT REPORTS FUSSY AND PACIFIER IS HELPING. DENIES ANY FURTHER NEEDS AT THIS TIME.
[2020-09-14] MEDS: IBUPROFEN 600 MG (MOTRIN) TAB PO SCH ×2 (03:02→08:31)
--- NOTE | 2020-09-14 07:32 | Postpartum Progress Note ---
Note Note Day # 2 Subjective: Patient is without complaints. Ambulating, voiding. Tolerating a regular diet without nausea or vomiting. Normal lochia. Pain is well controlled with oral pain medications. Objective: Physical Exam: General - Alert and oriented, no apparent distress Abdomen - Soft, appropriately tender to palpation, non-distended, fundus firm at umbilicus Extremities - no edema, negative Angelo's bilaterally Incision- c/d/i Assessment: POD 2 PLTCS Plan: Routine care. Encourage breast feeding. Encourage ambulation. Ferrous sulfate supplementation. Plan for discharge today Vitals - Labs Vital Signs - I&O Vital Signs Date Time Temp Pulse Resp B/P (MAP) Pulse Ox O2 Delivery O2 Flow Rate FiO2 09/14/20 02:55 36.1 83 18 123/58 (79) 97 Room Air 09/13/20 21:15 37.2 98 18 127/75 (92) 100 Room Air 09/13/20 15:23 36.3 91 18 129/58 (81) 99 Room Air 09/13/20 13:15 36.3 94 18 129/59 (82) 98 Room Air 09/13/20 09:18 36.4 104 18 137/72 (93) 98 Room Air LUISTODD Ferro DO Sep 14, 2020 07:32
[2020-09-14 08:25] VITALS: BP 138/79
[2020-09-14] MEDS: DOCUSATE SODIUM 100 MG (COLACE) CAP PO SCH (08:31)
[2020-09-14 10:15] VITALS: BP 138/79
--- NOTE | 2020-09-14 10:15 | NUR ---
Home instructions given and pt verbalized understanding. Ambulated to exit with ease. Accompanied by this RN, and in car seat.
== END 2020-09-14 10:15 | disposition home or self-care (01) | DRG 787 ==
LOC: WSo 02:59 → LDRP 03:00 → WSo 04:06 → LDRP 04:06 → WS 19:30
PROVIDERS: ADMIT Obstetrics & Gynecology; ATTEND Obstetrics & Gynecology
PROC: 10D00Z1 Extraction of Products of Conception, Low, Open Approach (ICD-10-PCS; principal; 2020-09-12 16:24)
DX: O48.0 Post-term pregnancy (principal); D62 Acute posthemorrhagic anemia; O64.0XX0 Obstructed labor due to incomplete rotation of fetal head, not applicable or unspecified; O69.81X0 Labor and delivery complicated by cord around neck, without compression, not applicable or unspecified; O90.81 Anemia of the puerperium; Z37.0 Single live birth; Z3A.40 40 weeks gestation of pregnancy; Z20.822 Contact with and (suspected) exposure to COVID-19
CPT/HCPCS: 36415; 85025; 86850; 86900; 86901; 87635; 99212

== ENCOUNTER → 2022-11-06 | Outpatient (CLI) | payer BC, MEDICAID ==
[~2022-11-06] MED LIST changes: +ACHD5005 PO; +DOCU-239 PO; +IBUP-844 PO
== END ==
LOC: LAB FS 10:45
PROVIDERS: ATTEND Obstetrics & Gynecology
DX: O20.0 Threatened abortion (principal)
CPT/HCPCS: 36415; 84702

== ENCOUNTER → 2022-11-09 | Outpatient (CLI) | payer BC, MEDICAID | LOC: LAB FS 14:04 | PROVIDERS: ATTEND Obstetrics & Gynecology | DX: O20.0 Threatened abortion (principal); Z3A.00 Weeks of gestation of pregnancy not specified | CPT/HCPCS: 36415; 84702 ==

== ENCOUNTER → 2023-02-02 | Outpatient (CLI) | payer BC, MEDICAID ==
--- NOTE | 2023-02-02 16:59 | Diagnostic Imaging Report ---
INDICATION: Routine care. TECHNIQUE: Multiple real-time grayscale images were obtained over the gravid uterus. COMPARISON: None FINDINGS: There is a single live fetus in a cephalic presentation. heart rate was recorded at 135 BPM. Placenta is anterior. No previa is detected. The amniotic fluid index is 15.5 cm. Cervical length is 5.9 cm. kidneys, bladder, and stomach are unremarkable. brain is unremarkable. There is a four-chamber heart. There is a three-vessel cord. Cord insertion is normal. spine is unremarkable. Maternal adnexa were not evaluated. Biometrical measurements are as follows: Biparietal 4.76 cm, age 20 weeks 3 days. Head circumference 18.74 cm, age 21 weeks 1 days. Abdominal circumference 16.09 cm, age 21 weeks 2 days. Femur length 3.35 cm, age 20 weeks 4 days. Sonographic estimate age: 20 weeks 6 days. Sonographic estimated date of delivery: 06/16/2023. Estimated Weight: 383 gm (+/- 56 gm). LMP percentile: 62%. heart rate: 135 beats per minute. number: 1 of 1. IMPRESSION: Single live IUP of 20 weeks 6 days. Estimated date of confinement sonographically is 06/16/2023. No complicating features are detected. Dictated by: Dictated on workstation # [id number]
== END ==
LOC: RAD 11:30
PROVIDERS: ATTEND Nurse Practitioner Women's Health
DX: Z34.92 Encounter for supervision of normal pregnancy, unspecified, second trimester (principal); Z3A.20 20 weeks gestation of pregnancy
CPT/HCPCS: 76805

== ENCOUNTER → 2023-03-30 | Outpatient (CLI) | payer BC, MEDICAID ==
[2023-03-30 16:49] LABS: URINE CREATININE FOR RATIO 12 MG/DL (30-125); URINE PROTEIN FOR RATIO ONLY < 6 MG/DL (6-12)
== END ==
LOC: LABNPT 16:25
PROVIDERS: ATTEND Nurse Practitioner Women's Health
DX: O13.9 Gestational [pregnancy-induced] hypertension without significant proteinuria, unspecified trimester (principal); Z3A.00 Weeks of gestation of pregnancy not specified
CPT/HCPCS: 82570; 84156

== ENCOUNTER 2023-06-03 13:23 | Outpatient (CLI) | payer BC, MEDICAID ==
[~2023-06-03] VITALS: Ht 162.6 cm; Wt 132.7 kg
== END 2023-06-03 15:00 | disposition home or self-care (01) ==
LOC: PREOP 13:23
PROVIDERS: ATTEND Obstetrics & Gynecology
DX: Z01.818 Encounter for other preprocedural examination (principal)

== ENCOUNTER 2023-06-11 05:33 | Inpatient (IN) | payer BC, MEDICAID ==
[2023-06-11] VITALS (8 sets, daily range): BP systolic 96–148; BP diastolic 60–79
[~2023-06-11] VITALS: Ht 162.6 cm; Wt 131.5 kg
[2023-06-11] MEDS ORDERED: METOCLOPRAMIDE INJ 10 MG/2 ML IV ONE (05:45)
[2023-06-11] MEDS ORDERED: ceFAZolin INJECTION 2,000 MG in NS (IVPB) 50 ML 50 ML IV ONE (05:45)
[2023-06-11] MEDS ORDERED: LACTATED RINGERS 1,000 ML 1,000 ML IV PRN (05:45)
[2023-06-11] MEDS ORDERED: FAMOTIDINE INJ 20MG/2ML VIAL IV ONE (05:45)
[2023-06-11] MEDS ORDERED: CITRIC ACID/SODIUM CITRATE ORAL SOLN 30 ML PO ONE (05:45)
[2023-06-11] MEDS: LACTATED RINGERS 1,000 ML 1,000 ML IV PRN ×2 (06:22→06:52)
[2023-06-11] MEDS ORDERED: CITRIC ACID/SODIUM CITRATE ORAL SOLN 30 ML ONE (06:26)
[2023-06-11] MEDS ORDERED: METOCLOPRAMIDE INJ 10 MG/2 ML ONE (06:26)
[2023-06-11] MEDS ORDERED: FAMOTIDINE INJ 20MG/2ML VIAL ONE (06:26)
[2023-06-11] MEDS ORDERED: fentaNYL INJECTION 100 MCG/2 ML VIAL ONE (06:32)
[2023-06-11 06:38] LABS: BASOPHILS # (AUTO) 0.1 10^3/uL (0.0-0.1); BASOPHILS % (AUTO) 0 % (0-10); EOSINOPHILS # (AUTO) 0.1 10^3/uL (0.0-0.3); EOSINOPHILS % (AUTO) 0 % (0-10); HEMATOCRIT 32 % (35-52); HEMOGLOBIN 10.7 g/dL (11.5-16.0); LYMPHOCYTES # (AUTO) 2.7 10^3/uL (1.0-4.0); LYMPHOCYTES % (AUTO) 23 % (12-44); MEAN CORPUSCULAR HEMOGLOBIN 28 pg (25-34); MEAN CORPUSCULAR HGB CONC 34 g/dL (32-36); MEAN CORPUSCULAR VOLUME 85 fL (80-99); MEAN PLATELET VOLUME 9.9 fL (9.0-12.2); MONOCYTES # (AUTO) 0.8 10^3/uL (0.0-1.0); MONOCYTES % (AUTO) 7 % (0-12); NEUTROPHILS # (AUTO) 7.6 10^3/uL (1.8-7.8); NEUTROPHILS % (AUTO) 66 % (42-75); PLATELET COUNT 208 10^3/uL (130-400); WHITE BLOOD COUNT 11.6 10^3/uL (4.3-11.0)
[2023-06-11 06:43] LABS: ALBUMIN 3.1 GM/DL (3.2-4.5); POTASSIUM 3.5 MMOL/L (3.6-5.0)
[2023-06-11 06:45] LABS: CALCIUM 8.4 MG/DL (8.5-10.1)
[2023-06-11 06:46] LABS: TOTAL PROTEIN 6.1 GM/DL (6.4-8.2)
[2023-06-11 06:48] LABS: BILIRUBIN,TOTAL 0.3 MG/DL (0.1-1.0)
[2023-06-11 06:49] LABS: CREATININE SERUM 0.71 MG/DL (0.60-1.30)
[2023-06-11] MEDS ORDERED: FLU QUADRIvalent (6 months+) 60 mcg/0.5 ml 2023-2024 (FLUARIX) IM ONE (07:30)
[2023-06-11] MEDS ORDERED: Tetanus/Diphtheria/Pertussis (Acell) ADULT Vaccine 0.5 ML IM SCH (08:00)
[2023-06-11] MEDS ORDERED: ONDANSETRON INJECTION 4 MG/2 ML (SDV) IVP PRN (08:00)
[2023-06-11] MEDS ORDERED: MEASLES, MUMPS, RUBELLA VACCINE (MMR) SC SCH (08:00)
[2023-06-11] MEDS ORDERED: OXYTOCIN DRIP PRE-MIX 500 ML IV SCH (08:00)
[2023-06-11] MEDS ORDERED: NALOXONE 0.4 MG/ML 1 ML VIAL IV PRN ×2 (08:00→10:00)
--- NOTE | 2023-06-11 08:00 | History & Physical-OB ---
OB - Chief Complaint & HPI Date/Time Date of Admission: Date of Admission: Jun 11, 2023 at 05:33 Date seen by a Provider: Jun 11, 2023 Time Seen by a Provider: 07:55 Chief Complaint/History OB-Reason for Admission/Chief: Section Hx : 2 Hx Para: 1 Expected Date of Delivery: Jun 18, 2023 Gestational Age in Weeks: 39 Gestational Age in Days: 0 Indication for : desires repeat Admission Nurse Assessment Rev: Yes History of Labs O pos Antibody neg GBS pos Allergies and Home Medications Allergies Coded Allergies: No Known Drug Allergies (Unverified , 06/03/23) Patient Home Medication List Home Medication List Reviewed: Yes Mag195/FA/Omega3/Dha/Fish Oil ( Gummies) 1 Each Tab.chew, 1 EACH PO DAILY, (Reported) Entered as Reported by: MARIA ECHEVERRIA on 09/10/20 6525 OB - History Hx of Present Care: Yes Ultrasounds: Normal mid trimester US Obstetrical Complications: None Medical Complications: None Delivery History Adverse Rxn to Tranfusion: No Patient Past Medical History n/a Social History/Family History 2nd Hand Smoke Exposure: No Immunizations Influenza Vaccine Up-to-Date: No; Not Current Hepatitis A: Yes Hepatitis B: Yes OB - Admission Exam Physical Exam Vitals: Vital Signs 06/11/23 05:50 Temp 36.6 Pulse 102 Resp 18 Pulse Ox 99 O2 Delivery Room Air HEENT: NCAT Heart: Rhythm Normal Lungs: Clear Abdomen: Gravid Extremities: Normal Reflexes: Normal Heart Rate: 130's Accelerations: Accelerations Present Decelerations: No Decelerations Short Term Variability: Present [employer] Tr[employer] Worker Variability: Average (6-25) Contractions on Admission: 6-10 Minutes Apart Intensity: Mild Labs Laboratory Tests Test 06/11/23 06:25 Range/Units White Blood Count 11.6 H 4.3-11.0 10^3/uL Red Blood Count 3.77 L 3.80-5.11 10^6/uL Hemoglobin 10.7 L 11.5-16.0 g/dL Hematocrit 32 L 35-52 % Mean Corpuscular Volume 85 80-99 fL Mean Corpuscular Hemoglobin 28 25-34 pg Mean Corpuscular Hemoglobin Concent 34 32-36 g/dL Red Cell Distribution Width 13.9 10.0-14.5 % Platelet Count 208 130-400 10^3/uL Mean Platelet Volume 9.9 9.0-12.2 fL Immature Granulocyte % (Auto) 4 % Neutrophils (%) (Auto) 66 42-75 % Lymphocytes (%) (Auto) 23 12-44 % Monocytes (%) (Auto) 7 0-12 % Eosinophils (%) (Auto) 0 0-10 % Basophils (%) (Auto) 0 0-10 % Neutrophils # (Auto) 7.6 1.8-7.8 10^3/uL Lymphocytes # (Auto) 2.7 1.0-4.0 10^3/uL Monocytes # (Auto) 0.8 0.0-1.0 10^3/uL Eosinophils # (Auto) 0.1 0.0-0.3 10^3/uL Basophils # (Auto) 0.1 0.0-0.1 10^3/uL Immature Granulocyte # (Auto) 0.5 H 0.0-0.1 10^3/uL Sodium Level 136 135-145 MMOL/L Potassium Level 3.5 L 3.6-5.0 MMOL/L Chloride Level 109 H 98-107 MMOL/L Carbon Dioxide Level 18 L 21-32 MMOL/L Anion Gap 9 5-14 MMOL/L Blood Urea Nitrogen 5 L 7-18 MG/DL Creatinine 0.71 0.60-1.30 MG/DL Estimat Glomerular Filtration Rate 121 BUN/Creatinine Ratio 7 Glucose Level 88 70-105 MG/DL Calcium Level 8.4 L 8.5-10.1 MG/DL Corrected Calcium 9.1 8.5-10.1 MG/DL Total Bilirubin 0.3 0.1-1.0 MG/DL Aspartate Amino Transf (AST/SGOT) 14 5-34 U/L Alanine Aminotransferase (ALT/SGPT) 14 0-55 U/L Alkaline Phosphatase 147 H 40-136 U/L Total Protein 6.1 L 6.4-8.2 GM/DL Albumin 3.1 L 3.2-4.5 GM/DL OB - Assessment/Plan/Diagnosis Assessment Assessment: section Admission Dx 23 yo @ 39 weeks Previous Admission Status: Inpatient Order (span 2 midnights) Reason for Inpatient Admission: Repeat Plan Plan: Section TODD SMITH DO Jun 11, 2023 07:59
--- NOTE | 2023-06-11 08:02 | Discharge Inst-Women's Service ---
Discharge Inst-Women's Serv Depart Medication/Instructions New, Converted or Re-Newed RX: Transmitted to Pharmacy Final Diagnosis POD 2 RLTCS Problems Reviewed?: Yes Consults/Follow Up Additional Follow Up: Yes Orders/Referrals Dr. Goldberg in 7-10 days and in 6 weeks Activity Activity: Activity as Tolerated Driving Instructions: No Driving for 1 Week NO SMOKING: NO SMOKING Nothing Inside Vagina: No Douching, No [place], No Tampons Diet Discharge Diet: No Restrictions Symptoms to Report to : Bleeding Excessive, Pain Increased, Fever Over 101 Degrees F, Vaginal Bleeding Increase, Questions/Concerns For Any Problems or Questions: Contact Your Physician Skin/Wound Care Infection Signs and Symptoms: Increased Redness, Foul Odor of Wound, Increased Drainage, Skin Itchy or Has a Rash, Increased Swelling, Temperature Above 101 F Operative Area Clean and Dry: Keep Incision Clean/Dry Stitches/[place]/Dermabond: Dermabond, Care of Stitches Bathing Instructions: TODD Ordoñez DO Jun 11, 2023 08:02
[2023-06-11] MEDS ORDERED: ACHD5005 PO (08:03)
[2023-06-11] MEDS ORDERED: DOCU100C37 PO (08:03)
[2023-06-11] MEDS ORDERED: IBUP-844 PO (08:03)
[2023-06-11] MEDS ORDERED: ONDANSETRON INJECTION 4 MG/2 ML (SDV) ONE (08:20)
[2023-06-11] MEDS ORDERED: LIDOCAINE PF 2% 5 ML VIAL ONE ×2 (08:20→08:36)
[2023-06-11] MEDS ORDERED: OXYTOCIN DRIP PRE-MIX 1,000 ML IV ONE (08:21)
[2023-06-11] MEDS ORDERED: BUPIVACAINE 0.5% 30 ML VIAL ONE (08:34)
[2023-06-11] MEDS ORDERED: diphenhydrAMINE INJ 50 MG/ML VIAL IV PRN (10:00)
[2023-06-11] MEDS ORDERED: ONDANSETRON INJECTION 4 MG/2 ML (SDV) IV PRN (10:00)
[2023-06-11] MEDS: KETOROLAC INJ 30 MG/ML VIAL IV SCH ×2 (11:41→18:32)
[2023-06-11] MEDS: DOCUSATE SODIUM 100 MG CAPSULE PO SCH ×2 (11:41→19:48)
[2023-06-11] MEDS ORDERED: CATHETER FLUSH 10 ML SYR IV SCH (14:00)
[2023-06-11] MEDS: HYDROcodone/ACETAMINOPHEN 5 MG/325 MG TABLET PO PRN (18:32)
--- NOTE | 2023-06-11 18:51 | OPERATIVE REPORT ---
PREOPERATIVE DIAGNOSES: 1. A 23-year-old at 39 weeks' gestation. 2. Previous section. POSTOPERATIVE DIAGNOSES: 1. A 23-year-old at 39 weeks' gestation. 2. Previous section. PROCEDURE: Repeat low transverse section. SURGEON: Kenney Smith DO RECORDS ASSOCIATE: Isabella Andrade DNP was necessary for manipulation and retraction throughout the procedure. ANESTHESIA: spinal. ESTIMATED BLOOD LOSS: 500 mL URINE OUTPUT: 100 mL clear at the end of the procedure. FLUIDS: 1800 mL lactated Ringer's solution. FINDINGS: A live male , weight and Apgars pending. Grossly normal-appearing uterus, bilateral fallopian tubes and ovaries. SPECIMEN SENT: None. INDICATIONS FOR PROCEDURE: This 23-year-old female was a patient who had sought care in my office, which was uncomplicated with the exception of wanting to proceed with repeat . At 39 weeks, we discussed delivery. Risks of the procedure were discussed with the patient in detail versus trial of labor. She wished to proceed with . After all of her questions were answered, consent was obtained, the patient was taken to the operating room. OPERATIVE DESCRIPTION IN DETAIL: Once in the operating room, spinal anesthesia was administered and found to be adequate, was placed in supine position with leftward tilt, prepped and draped in normal sterile fashion. A timeout was performed. Anesthesia was tested. I then make A Pfannenstiel skin incision through previous existing scar using knife and carried underlying fascia using Bovie cautery. The fascial incision extended laterally using Bovie cautery. The superior aspect of fascial incision was then grasped with Odalys clamps, tented up, and site, applying rectus muscles. The inferior aspect of the fascial incision was then grasped with Odalys clamps, tented up and dissected off the underlying rectus muscles. The rectus muscles were dissected in the midline, which exposed the peritoneum, which I entered bluntly, extended using blunt traction. Tom ring retractor was placed in the peritoneal incision, which offers excellent lateral sidewall retraction. I identified lower uterine segment, was found to be thinned out and make a low transverse incision to the vesicouterine peritoneum and bluntly dissected off the lower uterine segment, creating a bladder flap. I then proceeded my myotomy until membranes were visualized, at which point I extended uterine incision laterally and superiorly using bandage scissors. Amniotomy was performed in the process of doing this, clear fluid was noted. The infant was found in vertex presentation with gentle fundal pressure, the infant's head elevated up to the incision where delivered through the incision, the nares and oropharynx were bulb suctioned. Anterior and posterior shoulders were delivered. The was brought to the operative field with cord was doubly clamped and cut and was handed off to waiting nurses in attendance. Cord blood was collected. Three-vessel cord intact placenta delivered spontaneously thereafter. IV Pitocin was initiated to facilitate uterine contraction. Uterine fundus becomes firm by manual massage. The uterus exteriorized and cleared of all endometrial clots and debris. I then proceeded with closing the uterine incision using 0 Vicryl suture in a running locked fashion. Second layer of imbricating 0 Monocryl was placed. Excellent hemostasis was noted after doing this. I then placed the uterus back in the pelvis and copiously irrigated the pelvis with normal saline. Once again, there was nothing noted from any of my dissection planes. I placed Interceed antiadhesive over my low transverse incision. I removed the Tom ring retractor and then proceeded with closing the peritoneum using 3-0 Vicryl suture in a running fashion. The rectus muscles were reapproximated using 3-0 Vicryl suture in interrupted fashion. The fascia was reapproximated using 0 Vicryl suture in a running fashion. Subcutaneous tissue was reapproximated using 3-0 plain interrupted subcutaneous stitch and skin reapproximated using 4-0 Monocryl running subcuticular. Dermabond was applied. Incision and sterile dressing with white tape. The patient tolerated the procedure well and was taken to recovery room in stable condition. Lap and sponge count was correct at the end of the procedure. Instrument counts correct as well. Two grams of Ancef were given preoperatively for infection prophylaxis. Job ID: [id number] DocumentID: [id number] Dictated Date: 06/11/2023 11:01:44 Human Resource Intern Date: 06/11/2023 18:48:00 Dictated By: KENNEY SMITH DO
[2023-06-12 00:12] VITALS: BP 129/65
[2023-06-12] MEDS: KETOROLAC INJ 30 MG/ML VIAL IV SCH ×2 (00:13→06:17)
[2023-06-12 05:19] VITALS: BP 122/64
[2023-06-12 06:03] LABS: BASOPHILS # (AUTO) 0.1 10^3/uL (0.0-0.1); BASOPHILS % (AUTO) 0 % (0-10); EOSINOPHILS # (AUTO) 0.1 10^3/uL (0.0-0.3); EOSINOPHILS % (AUTO) 1 % (0-10); HEMATOCRIT 29 % (35-52); HEMOGLOBIN 9.7 g/dL (11.5-16.0); LYMPHOCYTES # (AUTO) 2.2 10^3/uL (1.0-4.0); LYMPHOCYTES % (AUTO) 17 % (12-44); MEAN CORPUSCULAR HEMOGLOBIN 28 pg (25-34); MEAN CORPUSCULAR HGB CONC 33 g/dL (32-36); MEAN CORPUSCULAR VOLUME 86 fL (80-99); MEAN PLATELET VOLUME 10.4 fL (9.0-12.2); MONOCYTES % (AUTO) 7 % (0-12); NEUTROPHILS # (AUTO) 9.8 10^3/uL (1.8-7.8); NEUTROPHILS % (AUTO) 73 % (42-75); PLATELET COUNT 226 10^3/uL (130-400); WHITE BLOOD COUNT 13.4 10^3/uL (4.3-11.0)
[2023-06-12] MEDS ORDERED: IBUPROFEN 600 MG TABLET PO SCH (08:00)
[2023-06-12 09:10] VITALS: BP 118/74
[2023-06-12] MEDS: DOCUSATE SODIUM 100 MG CAPSULE PO SCH (09:14)
[2023-06-12] MEDS: HYDROcodone/ACETAMINOPHEN 5 MG/325 MG TABLET PO PRN (09:25)
--- NOTE | 2023-06-12 09:44 | Postpartum Progress Note ---
Note Note Day # 1 Subjective: Patient is without complaints. Ambulating, voiding. Tolerating a regular diet without nausea or vomiting. Normal lochia. Pain is well controlled with oral pain medications. [] Objective: [] Physical Exam: General - Alert and oriented, no apparent distress Abdomen - Soft, appropriately tender to palpation, non-distended, fundus firm at umbilicus Incision no erythema or drainage Extremities - no edema, negative Angelo's bilaterally Assessment: Postoperative day 1, status post section Recovering well, hemodynamically stable Plan: Routine care. Encourage breast feeding. Encourage ambulation. Vitals - Labs Vital Signs - I&O Vital Signs Date Time Temp Pulse Resp B/P (MAP) Pulse Ox O2 Delivery O2 Flow Rate FiO2 06/12/23 09:10 36.3 84 16 118/74 (89) 97 Room Air 06/12/23 05:19 36.3 95 16 122/64 (83) 99 Room Air 06/12/23 00:12 36.0 92 18 129/65 (86) 99 Room Air 06/11/23 19:47 36.3 78 18 132/71 (91) 98 Room Air 06/11/23 15:57 36.8 96 18 143/79 (100) 98 Room Air 06/11/23 11:45 36.7 81 21 129/62 (84) 99 Room Air 06/11/23 09:53 36.0 26 96/74 (81) 99 Room Air 06/11/23 09:53 Room Air I & O 06/12/23 07:00 Intake Total 550 ml Output Total 3900 ml Balance -3350 ml Labs Laboratory Tests 06/12/23 05:16: White Blood Count 13.4H, Red Blood Count 3.42L, Hemoglobin 9.7L, Hematocrit 29L, Mean Corpuscular Volume 86, Mean Corpuscular Hemoglobin 28, Mean Corpuscular Hemoglobin Concent 33, Red Cell Distribution Width 14.3, Platelet Count 226, Mean Platelet Volume 10.4, Immature Granulocyte % (Auto) 2, Neutrophils (%) (Auto) 73, Lymphocytes (%) (Auto) 17, Monocytes (%) (Auto) 7, Eosinophils (%) (Auto) 1, Basophils (%) (Auto) 0, Neutrophils # (Auto) 9.8H, Lymphocytes # (Auto) 2.2, Monocytes # (Auto) 1.0, Eosinophils # (Auto) 0.1, Basophils # (Auto) 0.1, Immature Granulocyte # (Auto) 0.3H Microbiology 06/11/23 MRSA Screen - Final, Complete MRSA not isolated ISHMAEL CASTILLO DO Jun 12, 2023 09:44
[2023-06-12] MEDS ORDERED: FLU QUADRIvalent (6 months+) 60 mcg/0.5 ml 2023-2024 (FLUARIX) IM ONE (10:45)
--- NOTE | 2023-06-12 10:48 | Discharge Summary ---
Discharge Summary Hospital Course Problems Reviewed?: Yes Problems/Diagnosis: (1) 39 weeks gestation of Status: Resolved Resolution Date/Time: 06/12/23 @ 10:44 (2) Status post repeat low transverse section Status: Resolved Resolution Date/Time: 06/12/23 @ 10:44 Hospital Course Date of Admission: Jun 11, 2023 at 05:33 Admission Diagnosis : Family Physician/Provider: Jonnathan Briggs MD Date of Discharge: 06/12/23 Discharge Diagnosis: IUP at 39 weeks; repeat ltcs Hospital Course: Pt admitted for repeat ltcs. Uncomplicated section. routine postoperative course Labs and Pending Lab Test: Laboratory Tests 06/12/23 05:16: White Blood Count 13.4H, Red Blood Count 3.42L, Hemoglobin 9.7L, Hematocrit 29L, Mean Corpuscular Volume 86, Mean Corpuscular Hemoglobin 28, Mean Corpuscular Hemoglobin Concent 33, Red Cell Distribution Width 14.3, Platelet Count 226, Mean Platelet Volume 10.4, Immature Granulocyte % (Auto) 2, Neutrophils (%) (Auto) 73, Lymphocytes (%) (Auto) 17, Monocytes (%) (Auto) 7, Eosinophils (%) (Auto) 1, Basophils (%) (Auto) 0, Neutrophils # (Auto) 9.8H, Lymphocytes # (Auto) 2.2, Monocytes # (Auto) 1.0, Eosinophils # (Auto) 0.1, Basophils # (Auto) 0.1, Immature Granulocyte # (Auto) 0.3H Microbiology 06/11/23 MRSA Screen - Final, Complete MRSA not isolated Home Meds Active Docusate Sodium 100 Mg Capsule 100 Mg PO BID PRN Hydrocodone-Acetamin 5-325 mg (Hydrocodone/Acetaminophen) 5 Mg-325 Mg Tablet 1-2 Ea PO Q6HR PRN Ibu (Ibuprofen) 600 Mg Tablet 600 Mg PO Q6H Reported Gummies (Fpa593/FA/Omega3/Dha/Fish Oil) 1 Each Tab.chew 1 Each PO DAILY Activity: Activity as Tolerated Nothing Inside Vagina: No Douching, No [place], No Tampons Discharge Diet: No Restrictions Symptoms to Report to : Vaginal Bleeding Increase For Any Problems or Questions: Contact Your Physician Infection Signs and Symptoms: Increased Redness, Increased Drainage, Increased Swelling, Temperature Above 101 F Bathing Instructions: Shower Discharge Physical Examination Allergies: Coded Allergies: No Known Drug Allergies (Unverified , 06/03/23) Vitals & I&Os Vital Signs Date Time Temp Pulse Resp B/P (MAP) Pulse Ox O2 Delivery O2 Flow Rate FiO2 06/12/23 09:10 36.3 84 16 118/74 (89) 97 Room Air General Appearance: No Apparent Distress Respiratory: No Respiratory Distress Gastrointestinal: Non Tender, Soft Extremity: Non Tender, No Calf Tenderness Neurologic/Psychiatric: Normal Mood/Affect Discharge Summary Date of Admission Jun 11, 2023 at 05:33 Date of Discharge Discharge Date: Jun 13, 2023 Admission Diagnosis IUP at 39 weeks Repeat LTCS Discharge Diagnosis (1) 39 weeks gestation of Status: Resolved (2) Status post repeat low transverse section Status: Resolved Supervisory-Addendum Brief Verification & Attestation Participated in pt care: history, physical Personally performed: exam Care discussed with: other (n/a) Procedures: n/a n/a ISHMAEL CASTILLO DO Jun 12, 2023 10:48
[2023-06-12 13:30] VITALS: BP 139/74
[2023-06-12 14:55] VITALS: BP 139/74
--- NOTE | 2023-06-12 16:03 | Anesthesia-Regional Post-Op ---
Regional Post Op Complications Complications None Follow Up Care/Instructions Patient Instructions None needed. Anesthesia/Patient Condition Patient left prior to examination. Chart reviewed with no apparent adverse anesthesia problems. No complications reported per nursing. LIZ LOPEZ CRNA Jun 12, 2023 16:03
== END 2023-06-12 14:55 | disposition home or self-care (01) | DRG 788 ==
LOC: LDRP 05:33
PROVIDERS: ADMIT Obstetrics & Gynecology; ATTEND Obstetrics & Gynecology
PROC: 10D00Z1 Extraction of Products of Conception, Low, Open Approach (ICD-10-PCS; principal; 2023-06-11 07:53)
DX: O34.211 Maternal care for low transverse scar from previous cesarean delivery (principal); Z3A.39 39 weeks gestation of pregnancy; Z37.0 Single live birth; O99.824 Streptococcus B carrier state complicating childbirth
CPT/HCPCS: 36415; 80053; 85025; 86850; 86900; 86901; 87081; 90686; 94664